=== PATIENT | female | born 1975 ===

== ENCOUNTER 2017-09-01 12:45 | Inpatient (IN) | payer OTHER ==
[~2017-09-01] VITALS: Ht 170.2 cm; Wt 79.4 kg
[2017-09-25] MEDS ORDERED: PRENATAL TABLE1 EAC1 PO (01:07)
[2017-09-25] MEDS ORDERED: FOLIC ACID1 MG PO (01:08)
== END 2017-09-27 16:03 | DRG 775 ==
LOC: LDR 09-25 → OB/GYN 09-25
PROC: 0KQM0ZZ Repair Perineum Muscle, Open Approach (ICD-10-PCS; principal; 2017-09-25)
PROC: 10E0XZZ Delivery of Products of Conception, External Approach (ICD-10-PCS; 2017-09-25)
PROC: 4A1HXCZ Monitoring of Products of Conception, Cardiac Rate, External Approach (ICD-10-PCS; 2017-09-25)
PROC: 4A033R1 Measurement of Arterial Saturation, Peripheral, Percutaneous Approach (ICD-10-PCS; 2017-09-25)
DX: O70.1 Second degree perineal laceration during delivery (principal); Z37.0 Single live birth; Z3A.39 39 weeks gestation of pregnancy